=== PATIENT | male | born 1995 | race Caucasian/White ===

== ENCOUNTER 2023-09-05 04:37 | Emergency (ER) | payer MEDICAID ==
[~2023-09-05] VITALS: Ht 172.7 cm; Wt 75.0 kg
[2023-09-05 05:05] VITALS: TEMP 98.5
[2023-09-05 05:30] VITALS: BP 108/65; PULSE 66; RESP 14
[2023-09-05] MEDS ORDERED: CLIN300C58 PO (06:03)
[2023-09-05] MEDS ORDERED: ONDA-104 PO (06:03)
== END 2023-09-05 06:18 | disposition home or self-care (01) ==
LOC: EMS 04:40
DX: H66.92 Otitis media, unspecified, left ear (principal); F11.10 Opioid abuse, uncomplicated; F17.210 Nicotine dependence, cigarettes, uncomplicated; F12.90 Cannabis use, unspecified, uncomplicated; F15.90 Other stimulant use, unspecified, uncomplicated
CPT/HCPCS: 99283